=== PATIENT | male | born 1960 | race African-American/Black ===

== ENCOUNTER 2018-05-22 18:35 | Observation (INO) ==
[2018-05-22] MEDS ORDERED: Sod Chloride 0.9% Inj 1,000 ML IV.SIG ONE (19:01)
[2018-05-22] MEDS ORDERED: Phenytoin Inj 1,000 MG in Sodium Chlor 0.9% Inj 100 ML IV.SIG ONE (19:06)
--- NOTE | 2018-05-22 19:10 | ED ---
HPI General Chief complaint: Seizure Stated complaint: poss seizure/evac Time Seen by Provider: 05/22/18 18:53 History of Present Illness HPI narrative: This is a male who presents via EMS for evaluation of witnessed seizure. According to EMS the patient was seen to have a 5-minute tonic-clonic seizure outside of a closed business. Postictal when EMS arrived. Patient is currently awake and providing his name, Cezar Rosa. He reports that he has had seizures approximately 2 times a year over the past 4 years. Does not currently follow with a neurologist or primary care physician. He has never been on any antiepileptic medication. He does endorse frequent alcohol use, typically beer and wine. He also reports occasional crack use, most recently 2 days ago. He has been seen here under the name Cezar Rosa in the past, [id number], [id number] MRN numbers. Related Data Allergies Allergy/AdvReac Type Severity Reaction Status Date / Time No Known Allergies Allergy Verified 05/22/18 19:01 Review of Systems ROS: all other systems reviewed are negative [facility] Medical History Medical History Patient denies medical problems (Acute) Social History Social History Substance History: Active Abuse Second Hand Smoke Exposure: Yes Smoking Status: Current every day smoker Tobacco Type: Cigarettes How Often Do You Have a Drink Containing Alcohol: 4 or more times a week Exam Narrative Exam Narrative: GENERAL: This is a disheveled appearing male who is in no acute distress. He is alert and oriented to person and place and time. SKIN: Warm and dry. HEAD: Atraumatic. Normocephalic. EYES: Pupils equal and round. No scleral icterus. No injection or drainage. ENT: No nasal bleeding or discharge. Mucous membranes pink and moist. NECK: Trachea midline. No JVD. CARDIOVASCULAR: Regular rate and rhythm. No murmur appreciated. RESPIRATORY: No accessory muscle use. Clear to auscultation. Breath sounds equal bilaterally. GASTROINTESTINAL: Abdomen soft, non-tender, nondistended. Hepatic and splenic margins not palpable. MUSCULOSKELETAL: No obvious deformities. No clubbing. No cyanosis. No edema. NEUROLOGICAL: Awake and alert. No obvious cranial nerve deficits. Motor grossly within normal limits. Normal speech. Course Initial Documented Vital Signs Pulse Rate 91 H 05/22/18 19:20 Respiratory Rate 18 05/22/18 19:20 Blood Pressure 144/83 H 05/22/18 19:20 Pulse Oximetry 100 05/22/18 19:20 Last Documented Vital Signs Pulse Rate 86 05/22/18 21:08 Respiratory Rate 18 05/22/18 21:08 Blood Pressure 122/78 05/22/18 21:08 Pulse Oximetry 97 05/22/18 21:08 Medical Decision Making MDM Narrative Medical decision making narrative: the patient will be admitted for further evaluation and treatment. I discussed with the patient and his sister at bedside.Patient was placed on ECG monitor pulse oximetry. Lab work, CT brain ordered. Bolus of Dilantin was administered. Lab work is been reviewed. Potassium is 3.3, oral potassium chloride administered. Drug screen is positive for cocaine. Lab work is otherwise unremarkable. CT of the brain reveals a vague masslike area with scattered calcifications in the left parietal lobe measuring 1 x 1.8 cm in size. A mass and vascular malformation will be in the differential. Radiologist recommends a contrast-enhanced MRI. Therefore, the patient will be admitted for further treatment. Discussed with the patient and his sister at bedside. Medical Screen Exam Complete: Yes Emergency Medical Condition: Yes Differential Diagnosis Differential Diagnosis: Alcohol withdrawal seizure, cocaine induced seizure, electrolyte abnormality, hypoglycemia, epilepsy Lab Data Result diagrams: 05/22/18 19:40 05/22/18 19:40 Lab Results 05/22/18 05/22/18 05/22/18 Range/Units 19:40 19:40 19:40 WBC 5.1 (4.0-11.0) th/mm3 RBC 4.43 L (4.50-5.90) mil/mm3 Hgb 14.1 (13.0-17.0) gm/dL Hct 41.5 (39.0-51.0) % MCV 93.7 (80.0-100.0) fL MCH 31.8 (27.0-34.0) pg MCHC 33.9 (32.0-36.0) % RDW 13.5 (11.6-17.2) % Plt Count 234 (150-450) th/mm3 MPV 7.7 (7.0-11.0) fL Neut % (Auto) 75.6 H (16.0-70.0) % Lymph % (Auto) 18.8 (9.0-44.0) % Woods % (Auto) 4.5 (0.0-8.0) % Eos % (Auto) 0.1 (0.0-4.0) % Baso % (Auto) 1.0 (0.0-2.0) % Neut # (Auto) 3.8 (1.8-7.7) th/mm3 Lymph # (Auto) 1.0 (1.0-4.8) th/mm3 [place] # (Auto) 0.2 (0.0-0.9) th/mm3 Eos # (Auto) 0.0 (0.0-0.4) th/mm3 Baso # (Auto) 0.1 (0.0-0.2) th/mm3 WBC Differential . Differential Comment Auto diff final Sodium 138 (136-145) meq/L Potassium 3.3 L (3.5-5.1) meq/L Chloride 102 (98-107) meq/L Carbon Dioxide 26.8 (21.0-32.0) meq/L Anion Gap 9 (5-15) meq/L BUN 19 H (7-18) mg/dL Creatinine 0.97 (0.60-1.30) mg/dL Estimated GFR 67 L (>89) mL/min Random Glucose 81 (74-106) mg/dL Calcium 9.2 (8.5-10.1) mg/dL Magnesium 2.1 (1.5-2.5) mg/dL Urine Opiates Screen (Neg) Ur Barbiturates Screen (Neg) Ur Amphetamines Screen (Neg) U Benzodiazepines Scrn (Neg) Urine Cocaine Screen (Neg) U Cannabinoids Screen (Neg) Serum Alcohol 3 (0-5) mg/dL 05/22/18 Range/Units 19:40 WBC (4.0-11.0) th/mm3 RBC (4.50-5.90) mil/mm3 Hgb (13.0-17.0) gm/dL Hct (39.0-51.0) % MCV (80.0-100.0) fL MCH (27.0-34.0) pg MCHC (32.0-36.0) % RDW (11.6-17.2) % Plt Count (150-450) th/mm3 MPV (7.0-11.0) fL Neut % (Auto) (16.0-70.0) % Lymph % (Auto) (9.0-44.0) % Woods % (Auto) (0.0-8.0) % Eos % (Auto) (0.0-4.0) % Baso % (Auto) (0.0-2.0) % Neut # (Auto) (1.8-7.7) th/mm3 Lymph # (Auto) (1.0-4.8) th/mm3 Woods # (Auto) (0.0-0.9) th/mm3 Eos # (Auto) (0.0-0.4) th/mm3 Baso # (Auto) (0.0-0.2) th/mm3 WBC Differential Differential Comment Sodium (136-145) meq/L Potassium (3.5-5.1) meq/L Chloride (98-107) meq/L Carbon Dioxide (21.0-32.0) meq/L Anion Gap (5-15) meq/L BUN (7-18) mg/dL Creatinine (0.60-1.30) mg/dL Estimated GFR (>89) mL/min Random Glucose (74-106) mg/dL Calcium (8.5-10.1) mg/dL Magnesium (1.5-2.5) mg/dL Urine Opiates Screen Neg (Neg) Ur Barbiturates Screen Neg (Neg) Ur Amphetamines Screen Neg (Neg) U Benzodiazepines Scrn Neg (Neg) Urine Cocaine Screen Pos H (Neg) U Cannabinoids Screen Neg (Neg) Serum Alcohol (0-5) mg/dL Imaging Data Radiologist's impression: Head CT 05/22/18 19:01 CONCLUSION: Vague masslike area with scattered calcifications in the left parietal lobe. A mass and vascular malformation would be in the differential. Contrast-enhanced study is recommended, preferably MRI if there are no contraindications. . Discharge Plan Discharge Disposition Patient Disposition: ED Admit(ED Internal Use Only) Discharge Condition Condition: Stable Discharge Order Discharge Orders: ED Use Only Admit Order (Routine); Ordered 05/22/18 Ordered By: Aryan Marin Discharge Details Diagnosis: Seizure, Cocaine abuse, Intracranial mass Physicians Team ED Provider: Kelvin Hernandez ED Midlevel Provider: Aryan Marin Primary Care Provider: Primary Care Physici,No Discharge Interventions Interventions: Vital Signs Last Done: 05/22/18 21:08 Status ED Status: With Doctor
[2018-05-22 19:55] LABS: Baso # (Auto) 0.1 th/mm3 (0.0-0.2); Eos % (Auto) 0.1 % (0.0-4.0); Hematocrit 41.5 % (39.0-51.0); Hemoglobin 14.1 gm/dL (13.0-17.0); Lymph % (Auto) 18.8 % (9.0-44.0); Mean Corpuscular HGB Conc 33.9 % (32.0-36.0); Mean Corpuscular Hemoglobin 31.8 pg (27.0-34.0); Mean Corpuscular Volume 93.7 fL (80.0-100.0); Mean Platelet Volume 7.7 fL (7.0-11.0); Mono # (Auto) 0.2 th/mm3 (0.0-0.9); Mono % (Auto) 4.5 % (0.0-8.0); Neut # (Auto) 3.8 th/mm3 (1.8-7.7); Neut % (Auto) 75.6 % (16.0-70.0); Platelet Count 234 th/mm3 (150-450); Red Blood Count 4.43 mil/mm3 (4.50-5.90); Red Cell Distribution Width 13.5 % (11.6-17.2); White Blood Count 5.1 th/mm3 (4.0-11.0)
[2018-05-22 20:00] LABS: Amphetamine Screen,Urine Neg (Neg); Barbiturate Screen,Urine Neg (Neg); Cannabinoid Screen,Urine Neg (Neg); Cocaine Screen,Urine Pos (Neg)
[2018-05-22 20:01] LABS: Opiate Screen,Urine Neg (Neg)
[2018-05-22 20:11] LABS: Calcium 9.2 mg/dL (8.5-10.1); Carbon Dioxide 26.8 meq/L (21.0-32.0); Magnesium 2.1 mg/dL (1.5-2.5); Potassium 3.3 meq/L (3.5-5.1)
--- NOTE | 2018-05-22 21:14 | CT ---
EXAM DATE: 05/22/2018 9:09 PM EST AGE/SEX: 89 years / Male INDICATIONS: Witnessed seizure lasting approximately 5 minutes. CLINICAL DATA: This is the patient's initial encounter. Patient reports that signs and symptoms have been present for 1 day and indicates a pain score of 0/10. MEDICAL/SURGICAL HISTORY: Non-responsive. Non-responsive. RADIATION DOSE: 56.35 CTDI (mGy) COMPARISON: No prior exams available for comparison. TECHNIQUE: CT of the head without contrast. Using automated exposure control and adjustment of the mA and/or kV according to patient size, radiation dose was kept as low as reasonably achievable to ob tain optimal diagnostic quality images. DICOM format image data is available electronically for revi ew and comparison. FINDINGS: Focal area of slightly increased density with scattered calcifications seen in the left parietal lobe measuring approximately 1 x 1.8 cm in size. No leak demonstrated. No mass effect or midline shift. Bone window images show an intact skull. Chronic appearing opacification of the bilateral mastoid air cells. Visualized paranasal sinuses are clear. CONCLUSION: Vague masslike area with scattered calcifications in the left parietal lobe. A mass and v ascular malformation would be in the differential. Contrast-enhanced study is recommended, preferably MRI if there are no contraindications. . Electronically signed by: Saurav Bear MD 05/22/2018 9:13 PM EST
[2018-05-22] MEDS ORDERED: Gadobutrol PF 7.5 MMOL/7.5 ML Vial (for RAD) IV.SIG ONE (21:32)
[2018-05-22] MEDS ORDERED: Bisacodyl 10 MG Supp RECTAL PRN (21:42)
[2018-05-22] MEDS ORDERED: Acetaminophen 325 MG Tablet PO PRN (21:42)
--- NOTE | 2018-05-22 21:43 | P.HPIM ---
History of Present Illness Primary Care Physician: No Primary Care Physician History of Present Illness: Name: Cezar Rosa. Previous MR# [id number], [id number] This is a middle-aged black male who was brought to the ER by EMS as a Saurav Holland after witnessed seizure activity. Upon EMS arrival, pt noted to be post-ictal, not answering questions, now awake/alert/oriented. Notes previous h/o seizure several times over the last few years. Not on anticonvulsant therapy, does not follow w/ Neurology. +h/o Cocaine Abuse in addition to Alcohol Abuse. On arrival, BP 144/83, HR 91, O2 sat 100% on 2L NC. CBC essentially unremarkable. Chemistry unremarkable except for BUN 19, GFR 67. Urine Drug Screen positive for Cocaine. Alcohol negative. CT Head with vague masklike area with scattered calcification left parietal lobe, recommendation for MRI. Further episodes of seizure activity while in the ER. - Diagnosis (1) Seizure (2) Cocaine abuse (3) Intracranial mass Review of Systems PAST FAMILY HISTORY: Reviewed. No h/o DM or CAD All other systems reviewed negative except as stated in HPI PMFSH - History History Provided By: Patient - Medical History Medical History: Medical History (Last Updated 05/22/18 @ 19:26 by Shawna Lee) Patient denies medical problems - Tobacco History Second Hand Smoke Exposure: Yes Tobacco Use In Past 30 Days: Yes Smoking Status: Current every day smoker Tobacco Type: Cigarettes - Alcohol History How Often Do You Have a Drink Containing Alcohol: 4 or more times a week - Substance Use History Substance History: Active Abuse - Immunization History Tetanus Immunization: <5 Years Medications and Allergies Active Medications: Active Medications Sodium Chloride (Ns Flush) 2 ml IV.FLUSH PRN PRN PRN Reason: FLUSH AFTER USING IV ACCESS Allergies Allergy/AdvReac Type Severity Reaction Status Date / Time No Known Allergies Allergy Verified 05/22/18 19:01 Exam Vital signs: Vital Signs 05/22/18 19:20 05/22/18 19:27 05/22/18 21:08 Pulse Rate 91 H 86 Respiratory Rate 18 18 Blood Pressure 144/83 H 122/78 Pulse Oximetry 100 100 97 Intake & Output 05/22/18 05/22/18 05/23/18 06:59 18:59 06:59 Weight 56.699 kg Narrative: PE: GENERAL: Middle-aged black male in no acute distress. SKIN: Focused skin assessment warm and dry. HEENT: PERRLA, EOMI. No scleral icterus or conjunctival pallor. No lid lag or facial droop. CARDIOVASCULAR: Regular rate and rhythm. No obvious murmurs to auscultation. No chest tenderness to palpation. RESPIRATORY: No obvious rhonchi or wheezing. Clear to auscultation. Breath sounds equal bilaterally. GASTROINTESTINAL: Abdomen soft, non-tender, nondistended. BS normal. MUSCULOSKELETAL: Extremities without clubbing, cyanosis, or edema. No obvious deformities. NEUROLOGICAL: Awake, alert and oriented x4. No focal neurologic deficits. Moving both upper and lower extremities spontaneously. PSYCHIATRIC: Appropriate mood and affect. Insight and judgment normal. Results - Labs CBC & Chem 7: 05/22/18 19:40 05/22/18 19:40 Labs: Short CBC 05/22/18 Range/Units 19:40 WBC 5.1 (4.0-11.0) th/mm3 Hgb 14.1 (13.0-17.0) gm/dL Hct 41.5 (39.0-51.0) % Plt Count 234 (150-450) th/mm3 BMP 05/22/18 19:40 Sodium 138 Potassium 3.3 L Chloride 102 Carbon Dioxide 26.8 BUN 19 H Creatinine 0.97 Calcium 9.2 - Imaging Impressions Head CT 05/22/18 19:01 CONCLUSION: Vague masslike area with scattered calcifications in the left parietal lobe. A mass and vascular malformation would be in the differential. Contrast-enhanced study is recommended, preferably MRI if there are no contraindications. . Caprini VTE Risk Assessment Caprini VTE Risk Assessment: No/Low Risk (score <= 1) Caprini Risk Assessment Model: Point Value = 1 Point Value = 2 Point Value = 3 Point Value = 5 Age 41-60 Minor surgery BMI > 25 kg/m2 Swollen legs Varicose veins or History of unexplained or recurrent spontaneous Oral contraceptives or hormone replacement Sepsis (< 1 month) Serious lung disease, including pneumonia (< 1 month) Abnormal pulmonary function Acute myocardial infarction Congestive heart failure (< 1 month) History of inflammatory bowel disease Medical patient at bed rest Age 61-74 Arthroscopic surgery Major open surgery (> 45 min) Laparoscopic surgery (> 45 min) Malignancy Confined to bed (> 72 hours) Immobilizing plaster cast Central venous access Age >= 75 History of VTE Family history of VTE Factor V Leiden Prothrombin [id number] Lupus anticoagulant Anticardiolipin antibodies Elevated serum homocysteine Heparin-induced thrombocytopenia Other congenital or acquired thrombophilia Stroke (< 1 month) Elective arthroplasty Hip, pelvis, or leg fracture Acute spinal cord injury (< 1 month) Prophylaxis Regimen: Total Risk Factor Score Risk Level Prophylaxis Regimen 0-1 Low Early ambulation 2 Moderate Order ONE of the following: *Sequential Compression Device (SCD) *Heparin 5000 units SQ BID 3-4 Higher Order ONE of the following medications: *Heparin 5000 units SQ TID *Enoxaparin/Lovenox 40 mg SQ daily (WT < 150 kg, CrCl > 30 mL/min) *Enoxaparin/Lovenox 30 mg SQ daily (WT < 150 kg, CrCl > 10-29 mL/min) *Enoxaparin/Lovenox 30 mg SQ BID (WT < 150 kg, CrCl > 30 mL/min) AND/OR *Sequential Compression Device (SCD) 5 or more Highest Order ONE of the following medications: *Heparin 5000 units SQ TID (Preferred with Epidurals) *Enoxaparin/Lovenox 40 mg SQ daily (WT < 150 kg, CrCl > 30 mL/min) *Enoxaparin/Lovenox 30 mg SQ daily (WT < 150 kg, CrCl > 10-29 mL/min) *Enoxaparin/Lovenox 30 mg SQ BID (WT < 150 kg, CrCl > 30 mL/min) AND *Sequential Compression Device (SCD) Assessment and Plan - Assessment (1) Seizure Code(s): R56.9 - Unspecified convulsions Status: Acute (2) Cocaine abuse Code(s): F14.10 - Cocaine abuse, uncomplicated Status: Acute (3) Intracranial mass Code(s): R90.0 - Intracranial space-occupying lesion found on diagnostic imaging of central nervous system Status: Acute - Plan A/P: 1. Seizure: h/o seizure in the past, not on anticonvulsant medications, likely compounded by Cocaine and Alcohol Abuse in addition to finding of intracranial mass. Seizure Precautions, Ativan prn, Neuro checks. 2. Intracranial Mass: CT Head w/ masslike area left parietal lobe, recommendation for MRI. MRI pending, will follow, consult Neuro/NxSx based on findings. Neuro checks as above. 3. Cocaine Abuse: UDS +Cocaine, Ativan prn for withdrawal. 4. Alcohol Abuse: admits to daily drinking beer/wine, Alcohol negative. CIWA , Seizure Precautions, MVT/Thiamine/Folate replacement. 5. DVT Prophylaxis: SCD/Teds 6. Social work for d/c planning as needed. 7. Case discussed w/ ER physician at length, labs/records/imaging reviewed by me.
[2018-05-22] MEDS ORDERED: Haloperidol Inj 5 MG/ML Ampul IV.PUSH PRN (22:57)
[2018-05-22] MEDS ORDERED: LORazepam 1 MG Tablet PO PRN (22:57)
--- NOTE | 2018-05-23 00:21 | MR ---
EXAM DATE: 05/23/2018 12:01 AM EST AGE/SEX: 89 years / Male INDICATIONS: Mass. Headaches, Seizures CLINICAL DATA: This is the patient's initial encounter. Patient reports that signs and symptoms have been present for 1 day and indicates a pain score of 0/10. MEDICAL/SURGICAL HISTORY: Seizures. . Left hand COMPARISON: [facility] [place], CT HEAD W/O CONTRAST, 05/22/2018. . TECHNIQUE: Multiplanar, multisequence examination of the brain was performed without and with 4.5 ml Gadavist (gadobutrol) contrast as a single exam dose. FINDINGS: Diffusion weighted images demonstrate no evidence for acute infarction. CSF spaces, ventricles and ci sterns are of normal size and configuration. Left temporal region demonstrates a 2.2 x 1.4 cm area of serpiginous increased T1 signal with blooming artifact on susceptibility weighted imaging. On axial T2-weighted images a prominent elongated tubular structure is seen at this level with a few more tiny foci of decreased T2 signal noted. The tubular structure extends laterally and posteriorly toward th e transverse sinus. There is no surrounding edema or mass effect. The appearance is characteristic of a vascular malformation with a prominent draining vein. The signal intensity of the brain is unremar kable. On postcontrast images, an abnormal tangle of vessels is seen at this level. CONCLUSION: 1. 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 No surrounding mass effect, infarct, or edema. Electronically signed by: Denton Perez MD 05/23/2018 12:19 AM EST
[2018-05-23] MEDS: Sod Chloride 0.9% Inj 1,000 ML IV.CONT SCH ×2 (01:14→10:26)
[2018-05-23 07:40] LABS: Baso % (Auto) 0.7 % (0.0-2.0); Eos % (Auto) 0.3 % (0.0-4.0); Hematocrit 36.8 % (39.0-51.0); Hemoglobin 12.5 gm/dL (13.0-17.0); Lymph # (Auto) 1.2 th/mm3 (1.0-4.8); Lymph % (Auto) 24.8 % (9.0-44.0); Mean Corpuscular HGB Conc 33.9 % (32.0-36.0); Mean Corpuscular Hemoglobin 32.1 pg (27.0-34.0); Mean Corpuscular Volume 94.7 fL (80.0-100.0); Mean Platelet Volume 7.6 fL (7.0-11.0); Mono # (Auto) 0.4 th/mm3 (0.0-0.9); Mono % (Auto) 9.2 % (0.0-8.0); Platelet Count 211 th/mm3 (150-450); Red Blood Count 3.88 mil/mm3 (4.50-5.90); Red Cell Distribution Width 13.8 % (11.6-17.2); White Blood Count 4.6 th/mm3 (4.0-11.0)
[2018-05-23 08:16] LABS: Albumin 3.2 g/dL (3.4-5.0); Anion Gap 7 meq/L (5-15); Aspartate Aminotransferase 53 U/L (15-37); Blood Urea Nitrogen 16 mg/dL (7-18); Calcium 8.2 mg/dL (8.5-10.1); Carbon Dioxide 25.1 meq/L (21.0-32.0); Chloride 107 meq/L (98-107); Glomerular Filtration Rate Greater Than 89 mL/min (>89); Glucose,Random 64 mg/dL (74-106); Potassium 4.1 meq/L (3.5-5.1); Sodium 139 meq/L (136-145)
[2018-05-23 08:22] LABS: Alanine Aminotransferase 36 U/L (12-78); Alkaline Phosphatase 47 U/L (45-117); Total Protein 6.1 g/dL (6.4-8.2)
[2018-05-23] MEDS: Multivitamin/Minerals Therapeutic Tablet PO SCH (08:41)
[2018-05-23] MEDS: Senna/Docusate Sodium 8.6/50 MG Tablet PO SCH ×2 (08:41→21:07)
[2018-05-23] MEDS: Folic Acid 1 MG Tablet PO SCH (08:41)
[2018-05-23] MEDS: levETIRAcetam 500 MG Tablet PO SCH ×2 (11:37→21:08)
--- NOTE | 2018-05-23 12:35 | P.PN ---
Subjective Interval history: Nursing denies any acute changes overnight, no further witnessed seizures while under inpatient service. Patient reports having some nausea but does report eating his breakfast, nurse confirms he ate his entire breakfast. Reports being dizzy but no headache. Says he first started having seizures about 6 months ago. Denies any childhood history or teenage history of seizures. MRI of the head is showing AVM. Physical Exam Vital signs: Vital Signs 05/22/18 19:20 05/22/18 19:27 05/22/18 21:08 Temperature Pulse Rate 91 H 86 Respiratory Rate 18 18 Blood Pressure 144/83 H 122/78 Pulse Oximetry 100 100 97 05/23/18 00:00 05/23/18 04:00 05/23/18 08:00 Temperature 98.1 F 98.2 F 97.9 F Pulse Rate 77 76 81 Respiratory Rate 16 16 18 Blood Pressure 126/73 109/56 L 99/60 L Pulse Oximetry 93 L 96 98 Intake & Output 05/22/18 05/23/18 05/23/18 18:59 06:59 18:59 Intake Total 1120 / 1120 1000 / 1000 Balance 1120 / 1120 1000 / 1000 Weight 56.669 kg Intake: IV 1120 / 1120 1000 / 1000 NS Inj 1,000 ML @ 100 mls/hr IV 1000 / 1000 .CONT .Q10H MAGED Rx#:[id number] Dilantin Inj 1,000 MG In NS Inj 120 / 120 100 ML @ 288 mls/hr IV.SIG ONCE ONE Rx#:[id number] NS Inj 1,000 ML @ Wide Open IV. 1000 / 1000 SIG BOLUS ONE Rx#:[id number] Oral 0 / 0 Other: Date of Last Bowel Movement 05/22/18 05/22/18 # Bowel Movements 0 0 Weight On Admission 56.669 kg Narrative: Patient sleeping, easily awoken, awake and alert, no acute distress Extraocular motions intact, pupils equal round reactive bilaterally No facial droop, no slurred speech Tongue protrusion actively upon prompting and midline 5/5 proximal upper extremity strength bilaterally including fist culinary arts instructor Patient says his left leg is bad due to arthritic pain, therefore demonstrates 4 /5 proximal hip flexor strength on the left, 5/5 proximal hip flexor strength on the right, 5/5 active strength on both dorsiflexion and plantar flexion bilateral feet Results - Labs CBC & Chem 7: 05/23/18 06:26 05/23/18 06:26 Laboratory Results - last 24 hr 05/22/18 05/22/18 05/22/18 19:40 19:40 19:40 WBC 5.1 RBC 4.43 L Hgb 14.1 Hct 41.5 MCV 93.7 MCH 31.8 MCHC 33.9 RDW 13.5 Plt Count 234 MPV 7.7 Neut % (Auto) 75.6 H Lymph % (Auto) 18.8 [place] % (Auto) 4.5 Eos % (Auto) 0.1 Baso % (Auto) 1.0 Neut # (Auto) 3.8 Lymph # (Auto) 1.0 [place] # (Auto) 0.2 Eos # (Auto) 0.0 Baso # (Auto) 0.1 WBC Differential . Differential Comment Auto diff final Sodium 138 Potassium 3.3 L Chloride 102 Carbon Dioxide 26.8 Anion Gap 9 BUN 19 H Creatinine 0.97 Estimated GFR 67 L POC Glucose Random Glucose 81 Calcium 9.2 Magnesium 2.1 Total Bilirubin AST ALT Alkaline Phosphatase Total Protein Albumin Urine Opiates Screen Ur Barbiturates Screen Ur Amphetamines Screen U Benzodiazepines Scrn Urine Cocaine Screen U Cannabinoids Screen Serum Alcohol 3 05/22/18 05/23/18 05/23/18 19:40 06:26 06:26 WBC 4.6 RBC 3.88 L Hgb 12.5 L Hct 36.8 L MCV 94.7 MCH 32.1 MCHC 33.9 RDW 13.8 Plt Count 211 MPV 7.6 Neut % (Auto) 65.0 Lymph % (Auto) 24.8 [place] % (Auto) 9.2 H Eos % (Auto) 0.3 Baso % (Auto) 0.7 Neut # (Auto) 3.0 Lymph # (Auto) 1.2 [place] # (Auto) 0.4 Eos # (Auto) 0.0 Baso # (Auto) 0.0 WBC Differential . Differential Comment Auto diff final Sodium 139 Potassium 4.1 D Chloride 107 Carbon Dioxide 25.1 Anion Gap 7 BUN 16 Creatinine 0.83 Estimated GFR Greater than 89 POC Glucose Random Glucose 64 L Calcium 8.2 L D Magnesium Total Bilirubin 0.6 AST 53 H ALT 36 Alkaline Phosphatase 47 Total Protein 6.1 L Albumin 3.2 L Urine Opiates Screen Neg Ur Barbiturates Screen Neg Ur Amphetamines Screen Neg U Benzodiazepines Scrn Neg Urine Cocaine Screen Pos H U Cannabinoids Screen Neg Serum Alcohol 05/23/18 12:13 WBC RBC Hgb Hct MCV MCH MCHC RDW Plt Count MPV Neut % (Auto) Lymph % (Auto) [place] % (Auto) Eos % (Auto) Baso % (Auto) Neut # (Auto) Lymph # (Auto) [place] # (Auto) Eos # (Auto) Baso # (Auto) WBC Differential Differential Comment Sodium Potassium Chloride Carbon Dioxide Anion Gap BUN Creatinine Estimated GFR POC Glucose 101 Random Glucose Calcium Magnesium Total Bilirubin AST ALT Alkaline Phosphatase Total Protein Albumin Urine Opiates Screen Ur Barbiturates Screen Ur Amphetamines Screen U Benzodiazepines Scrn Urine Cocaine Screen U Cannabinoids Screen Serum Alcohol - Imaging Impressions Head CT 05/22/18 19:01 CONCLUSION: Vague masslike area with scattered calcifications in the left parietal lobe. A mass and vascular malformation would be in the differential. Contrast-enhanced study is recommended, preferably MRI if there are no contraindications. . Head MRI 05/22/18 21:31 CONCLUSION: 1. 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 No surrounding mass effect, infarct, or edema. Assessment and Plan - Assessment (1) Seizure Code(s): R56.9 - Unspecified convulsions Status: Acute (2) Cocaine abuse Code(s): F14.10 - Cocaine abuse, uncomplicated Status: Acute (3) Intracranial mass Code(s): R90.0 - Intracranial space-occupying lesion found on diagnostic imaging of central nervous system Status: Acute - Plan 57-year-old black male admitted due to seizures Seizures Status post loading in the emergency department MRI suggesting AVM, consulting neurosurgery Starting daily Bertha Extensive counseling the patient on the importance of medication compliance and risk of complications of AVM should he remain noncompliant Advised to refrain from cocaine as this can worsen his condition, resulting in a intracranial hemorrhage Avoid pharmacologic medical regulation due to risk of hemorrhage from AVM
--- NOTE | 2018-05-23 13:53 | MB ---
cc: Antony Aguilar MD DATE: 05/23/2018 INITIAL COMPREHENSIVE INPATIENT OBSERVATION NEUROSURGICAL CONSULTATION AGE: 58. CHIEF COMPLAINT: Seizure with brain mass. HISTORY OF PRESENT ILLNESS: The patient was interviewed, examined;,the documentation, laboratory evaluation, and imaging reviewed. CHIEF COMPLAINT: Seizure and brain mass. HISTORY OF PRESENT ILLNESS: This is a 58-year-old right-handed black male who was admitted through the emergency room last night with apparent recurrent seizures. His seizures were controlled in the emergency department. 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 Currently, at this point in time, the patient has no complaints and has a Michelle Coma Scale of 15. Upon further questioning, the patient states that he developed his first generalized seizure 2 years ago and had a recurrent seizure 6 months ago. Each time, he states he was seen in the emergency department here at [facility]. In any case, he states that he was not recommended to have any treatment. He was not placed on antiepileptic medication upon discharge. PAST MEDICAL HISTORY: Negative except as stated above in the history of present illness. PAST MEDICAL HISTORY: Remarkable for repair of lacerations to his left forearm and left lower extremity. MEDICATIONS: None. ALLERGIES: HE HAS NO KNOWN DRUG ALLERGIES. SOCIAL HISTORY: He lives with his sister intermittently, but otherwise is homeless. He admits to cigarette smoking and smokes 1/2-pack of cigarettes per day for many years. He also describes history of taking alcohol and may take this to the extent of abuse. He admits to illicit drug use, cocaine abuse intermittently. FAMILY HISTORY: Remarkable for tuberculosis. REVIEW OF SYSTEMS: He denies any weight loss. He denies any fever, chills or night sweats. Denies any headaches. He denies any change in his vision or hearing or thinking or memory or speech or swallowing or chest pain or shortness of breath or abdominal pain. Denies any change in bowel or bladder function or characteristics of his urine or stool. He admits to some pain and swelling of his left knee, which he thinks is secondary to arthritis. He denies any rash, itching, or easy bruising. He may have underlying history of depression, but denies anxiety. NEUROLOGICAL EXAMINATION: VITAL SIGNS: His temperature is 97.6. His heart rate is 82, blood pressure 100/56 and his respiratory rate is 18. His SPO2 was 97% on room air. MENTAL STATUS: Testing finds him to be awake and alert. He is oriented x3. Cognitive function is grossly intact. His speech is fluent. Cranial nerve testing 2-12 was grossly intact. Funduscopic examination was deferred. Visual lemos are full to confrontation. Extraocular movements are full without diplopia or nystagmus. Motor examination found bulk and tone to be within normal limits. There was weakness distally of his left upper extremity due to the previous repaired laceration. Otherwise power testing was 5+/5+ throughout. Sensory examination was intact to light touch and position throughout. Deep tendon reflexes were 1-2+ and symmetric without pathological reflexes noted. Cerebellar testing found no dysmetria. Fine coordination was grossly intact. There was no gross truncal nor appendicular ataxia noted. Gait Romberg and tandem were not tested. His head was normocephalic. There is no buck sign or raccoon eyes. There was no blood within the external auditory canals. There was no sign of CSF otorrhea or rhinorrhea. Cervical spine evaluation revealed relatively full range of motion without pain to palpation. There was no sign of meningismus. 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 RECOMMENDATIONS AND PLAN: I will order a CT angiogram of the head with contrast and the pending results will determine the appropriate further diagnostic and therapeutic approach. The patient certainly would require referral to a neurologist for seizure management and control. It also will probably be appropriate that he be referred as an outpatient to our clinic in [place]; that is the cerebrovascular section at the [facility] in [place], for further consultation and evaluation and treatment. I will be happy to follow along and consult. Thank you for allowing me to participate in the care of this patient. MD JUAN CARLOS Turcios/neha , 01:22 PM , 01:33 PM
--- NOTE | 2018-05-23 13:54 | CT ---
EXAM DATE: 05/23/2018 1:50 PM EST AGE/SEX: 89 years / Male INDICATIONS: Av malformation. CLINICAL DATA: This is the patient's initial encounter. Patient reports that signs and symptoms have been present for 1 day and indicates a pain score of Nonresponsive. MEDICAL/SURGICAL HISTORY: Non-responsive. Non-responsive. RADIATION DOSE: 45.31 CTDI (mGy) COMPARISON: [facility] – [place], [place], MR HEAD W & W/O CONTRAST, 05/22/2018. . TECHNIQUE: Volumetric scanning was performed using a multi-row detector CT scanner during bolus infu aaron of 73 ml Omnipaque 350 (iohexol) nonionic water-soluble contrast as a single exam dose. The d antonino was post processed with a variety of visualization algorithms including full volume maximum inten sity projection, multi-planar sliding thin slab reformation, curved planar reformation, and surface r endering techniques. Using automated exposure control and adjustment of the mA and/or kV according t o patient size, radiation dose was kept as low as reasonably achievable to obtain optimal diagnostic quality images. DICOM format image data is available electronically for review and comparison. FINDINGS: Large arteriovenous malformation is present in the left temporal region, dominant feeders are the ant erior division of the middle cerebral artery with some recruitment of the third and fourth branches o f the left middle cerebral artery.. Large draining vein is seen on the dural surface that drains posteriorly into the sigmoid siphon. The left middle cerebral artery is hypertrophied. Both anterior cerebral arteries and the right middle cerebral artery widely patent. CONCLUSION: 1. Left Temporal arteriovenous malformation as above . Electronically signed by: Ashutosh Rolle MD 05/23/2018 1:53 PM EST
[2018-05-24] MEDS: Sod Chloride 0.9% Inj 1,000 ML IV.CONT SCH ×2 (05:17→05:18)
[2018-05-24] MEDS: Multivitamin/Minerals Therapeutic Tablet PO SCH (08:25)
[2018-05-24] MEDS: levETIRAcetam 500 MG Tablet PO SCH (08:25)
[2018-05-24] MEDS: Folic Acid 1 MG Tablet PO SCH (08:25)
[2018-05-24] MEDS: Senna/Docusate Sodium 8.6/50 MG Tablet PO SCH (08:26)
--- NOTE | 2018-05-24 10:46 | P.PN ---
Subjective Interval history: Nursing denies any acute changes overnight, no seizures noted. Patient himself has no new complaints, no nausea no vomiting. Physical Exam Vital signs: Vital Signs 05/23/18 12:00 05/23/18 14:52 05/23/18 16:00 Temperature 97.6 F Pulse Rate 82 86 Respiratory Rate 18 18 Blood Pressure 100/56 L 98/55 L Pulse Oximetry 97 97 100 05/23/18 20:00 05/23/18 23:33 05/24/18 04:00 Temperature 97.8 F 98.6 F 98.4 F Pulse Rate 73 81 80 Respiratory Rate 17 17 20 Blood Pressure 140/79 97/60 L 112/78 Pulse Oximetry 95 98 98 05/24/18 07:12 05/24/18 08:00 Temperature 98.3 F Pulse Rate 71 Respiratory Rate 18 Blood Pressure 123/68 Pulse Oximetry 97 99 Intake & Output 05/23/18 05/24/18 05/24/18 18:59 06:59 18:59 Intake Total 1850 / 1850 1000 / 1000 240 / 240 Output Total 800 / 800 Balance 1850 / 1850 1000 / 1000 -560 / -560 Intake: IV 1000 / 1000 1000 / 1000 NS Inj 1,000 ML @ 100 mls/hr IV 1000 / 1000 1000 / 1000 .CONT .Q10H MAGED Rx#:[id number] Oral 850 / 850 240 / 240 Output: Urine 800 / 800 Other: # Voids 5 Date of Last Bowel Movement 05/22/18 05/23/18 # Bowel Movements 0 Narrative: Clear lungs bilaterally, unlabored breathing Heart sounds regular rate and rhythm, no murmurs 5/5 proximal upper extremity and lower extremity gross strength Awake and alert, no facial droop, no slurred speech, tongue protrusion midline, pupils equal round reactive bilaterally Results - Labs CBC & Chem 7: 05/23/18 06:26 05/23/18 06:26 Laboratory Results - last 24 hr 05/23/18 05/23/18 05/23/18 12:13 17:06 21:34 POC Glucose 101 92 98 - Imaging Impressions Head CTA 05/23/18 00:00 CONCLUSION: 1. Left Temporal arteriovenous malformation as above . Assessment and Plan - Assessment (1) Seizure Code(s): R56.9 - Unspecified convulsions Status: Acute (2) Cocaine abuse Code(s): F14.10 - Cocaine abuse, uncomplicated Status: Acute (3) Intracranial mass Code(s): R90.0 - Intracranial space-occupying lesion found on diagnostic imaging of central nervous system Status: Acute - Plan 57-year-old black male admitted due to seizures Seizures Status post loading in the emergency department Likely secondary to AVM -CTA ordered by neurosurgery showing left temporal AVM Keppra, awaiting their neurology consultation and disposition for discharge Patient was advised to refrain from driving or operating any heavy machinery. Pending clearance from neurosurgery and neurology, patient can be discharged today w/ close f/u with NSG outpatient in [place] - given instructions.
--- NOTE | 2018-05-24 15:18 | P.PNNS ---
Subjective Interval history: The patient is stable over night. He denies headaches or further seizures. Physical Exam Vital signs: Vital Signs 05/23/18 16:00 05/23/18 20:00 05/23/18 23:33 Temperature 97.8 F 98.6 F Pulse Rate 86 73 81 Respiratory Rate 18 17 17 Blood Pressure 98/55 L 140/79 97/60 L Pulse Oximetry 100 95 98 05/24/18 04:00 05/24/18 07:12 05/24/18 08:00 Temperature 98.4 F 98.3 F Pulse Rate 80 71 Respiratory Rate 20 18 Blood Pressure 112/78 123/68 Pulse Oximetry 98 97 99 05/24/18 12:00 Temperature 97.2 F L Pulse Rate 73 Respiratory Rate 16 Blood Pressure 105/64 Pulse Oximetry 98 Intake & Output 05/23/18 05/24/18 05/24/18 18:59 06:59 18:59 Intake Total 1850 / 1850 1000 / 1000 1240 / 1240 Output Total 800 / 800 Balance 1850 / 1850 1000 / 1000 440 / 440 Intake: IV 1000 / 1000 1000 / 1000 1000 / 1000 NS Inj 1,000 ML @ 100 mls/hr IV 1000 / 1000 1000 / 1000 1000 / 1000 .CONT .Q10H MAGED Rx#:[id number] Oral 850 / 850 240 / 240 Output: Urine 800 / 800 Other: # Voids 5 Date of Last Bowel Movement 05/22/18 05/23/18 # Bowel Movements 0 - Constitutional no acute distress, thin - Routine Neurological Exam The patient is awake and alert. his speech is fluent. He is oriented by 3. Memory is intact recent and remote. CN 2-12 is intact. There are no focal or motor deficits. He is ambulatory and continent. Assessment and Plan - Assessment (1) Arteriovenous malformation, brain Code(s): Q28.2 - Arteriovenous malformation of cerebral vessels Status: Acute - Plan I have discussed with the patient the results of the work up and brain imaging done. I discussed with him the options for treatment of this AVM of the brain. He desires further evaluation and treatment. I have explained to him that he will need to be referred to my associates at the in [place] for consultation and evaluation and treatment. Since he is stable clinically without sign of acute intracranial hemorrhage then there is no indication for inpatient transfer. He is stable for discharge from a neurosurgical point of view. He will need to be maintained on anticonvulsants as per neurology. I discussed this all with the hospitalist and the employment case manager. I will sign off the case. Antony Aguilar MD
[2018-05-24] MEDS ORDERED: levETIRAcetam 500 MG Tablet PO SCH (21:00)
--- NOTE | 2018-05-26 07:31 | MB ---
cc: Conner Petty MD, PhD DATE: 05/22/2018 AKA: [place] REASON FOR CONSULTATION: Seizure. HISTORY OF PRESENT ILLNESS: This is a 58-year-old -Spanish man who had a seizure 2-1/2 years ago and then a recurrent seizure about 6 months ago. He relates these as being loss of consciousness with jerking-like activity. He presented to the ER here with recurrent seizure. He states he has never been on any seizure medications. He has been evaluated with imaging studies, CT of the brain. He has a left parietal area of abnormality with scattered calcifications, possible AVM. He had an MRI of the brain as well, which is consistent with an arteriovenous malformation in the left temporal region. No mass effect or edema is identified. He has since undergone evaluation by neurosurgery and a CT angiogram of the brain was ordered consistent with a left temporal arteriovenous malformation. No sign of hemorrhage. The patient was started on Keppra with no recurrent seizures. PHYSICAL EXAMINATION: VITAL SIGNS: Blood pressure is 120/68, pulse of 70, respirations 18, temperature 98 degrees. HIGHER CORTICAL FUNCTION: He is alert, oriented x3. Follows commands. Speech is normal. Cranial nerves intact. Motor exam: No focal deficits identified with basically 5/5 strength in all groups in both upper and lower extremities. There is no drift. Reflexes are 2+ biceps, triceps and brachioradialis symmetric, 2+ patellar symmetric, 1+ ankle symmetric. There is no Babinski sign present. LABORATORY DATA: White count is 4600, hemoglobin 12.5, hematocrit 36.8%, platelet count 211,000. Sodium is 138, potassium 3.3, chloride 102, CO2 of 26.8, BUN is 19, creatinine 0.97, GFR 67, glucose is 81. Tox screen positive for cocaine. Alcohol level 3. IMPRESSION: Recurrent seizure probably related to the AVM in the left temporal area, also possibly related to the cocaine. RECOMMENDATIONS: Continue Keppra. We will raise the dose to 1000 mg b.i.d. Regarding the AVM, we will defer to neurosurgery's recommendations. The patient is counseled to avoid any further drug abuse as well. Conner Petty MD, PhD LICO/sv/donita , 12:05 PM , 12:10 PM
== END 2018-05-24 15:50 | disposition home or self-care (01) ==
LOC: NEPC 18:35 → NEDA 18:35 → EDBD 21:31 → NEDA 23:41 → NEPGCP 23:55
PROVIDERS: ADMIT Hospitalist; ATTEND Hospitalist